=== PATIENT | female | born 1990 | race African-American/Black ===

== ENCOUNTER 2024-12-15 16:37 | Inpatient (IN) | payer OTHER ==
[2024-12-15 16:59] VITALS: BMI 29.9
[2024-12-15] MEDS ORDERED: guaiFENesin 600 MG TABLET.ER (FP) PO PRN (17:45)
[2024-12-15] MEDS ORDERED: DICYCLOMINE HCL 10 MG CAPSULE PO PRN (17:45)
[2024-12-15] MEDS ORDERED: IBUPROFEN 400 MG TABLET (FP) PO PRN (17:45)
[2024-12-15] MEDS ORDERED: NICOTINE POLACRILEX 2 MG GUM BUC PRN (17:45)
[2024-12-15] MEDS ORDERED: MAGNESIUM HYDROX 2400MG/30ML ORAL SUSPENSION 30 ML CUP PO PRN (17:45)
[2024-12-15] MEDS ORDERED: ACETAMINOPHEN 325 MG TABLET (FP) PO PRN (17:45)
[2024-12-15] MEDS ORDERED: METHOCARBAMOL 500 MG TABLET PO PRN (17:45)
[2024-12-15] MEDS ORDERED: IBUPROFEN 600 MG TABLET (FP) PO PRN (17:45)
[2024-12-15] MEDS ORDERED: LOPERAMIDE HCL 2 MG CAPSULE PO PRN (17:45)
[2024-12-15] MEDS ORDERED: NALOXONE (NARCAN) HCL 4 MG/0.1 ML SPRAY NS PRN (17:45)
[2024-12-15] MEDS ORDERED: BISMUTH SUBSALICYLATE 524 MG/30 ML PO PRN (17:45)
[2024-12-15] MEDS ORDERED: ONDANSETRON *ODT* 4 MG TABLET SL PRN (17:45)
[2024-12-15] MEDS ORDERED: BENZONATATE 200 MG CAPSULE PO PRN (17:45)
[2024-12-15] MEDS ORDERED: BENZOCAINE/MENTHOL (CHLORASEPTIC ) LOZENGE MM PRN (17:45)
[2024-12-15] MEDS ORDERED: POLYETHYLENE GLYCOL (HEALTHYLAX) 3350 17 GM PACKET PO PRN (17:45)
[2024-12-15] MEDS ORDERED: MAG HYDROX/AL HYDROX/SIMETH 30 ML UNIT-DOSE CUP PO PRN (17:45)
[2024-12-15] MEDS: hydrOXYzine PAMOATE 25 MG CAPSULE (FP) PO PRN (18:16)
[2024-12-15] MEDS ORDERED: hydrOXYzine PAMOATE 25 MG CAPSULE (FP) PO ONE (18:17)
[2024-12-15] MEDS ORDERED: ALBUTEROL SO4 HFA INHALER IH PRN (18:34)
[2024-12-15] MEDS: THIAMINE 100 MG TABLET PO SCH (23:31)
[2024-12-15] MEDS: MELATONIN 5 MG TABLETS PO SCH (23:31)
[2024-12-16 09:33] VITALS: BP 113/86; PULSE 98; RESP 16; TEMP 97.1
[2024-12-16] MEDS: DULoxetine HCL 60 MG CAPSULE.DR PO SCH (10:34)
[2024-12-16] MEDS: PRENATAL VITAMINS W/ FOLIC ACID TABLET (FP) PO SCH (10:35)
[2024-12-16 11:14] LABS: HEMATOCRIT 37.2 % (34.1-44.9); HEMOGLOBIN 11.9 g/dL (11.2-15.7); MEAN CELL VOLUME 92.3 fl (79.4-94.8); MEAN PLT VOLUME 10.6 fl (9.4-12.3); PLATELET COUNT 227 x10^3/uL (182-369); RDW 15.3 % (12.1-16.8)
[2024-12-16 11:19] LABS: CHLORIDE 105 mmol/L (98-107); POTASSIUM 4.1 mmol/L (3.5-5.1); SODIUM 139 mmol/L (136-145)
[2024-12-16 11:30] LABS: ANION GAP 6 mmol/L (4-13); BLOOD UREA NITROGEN 7.9 mg/dL (7-18); CO2 28 mmol/L (21-32); GLUCOSE,RANDOM 77 mg/dL (74-106)
[2024-12-16 11:34] LABS: CREATININE 0.6 mg/dL (0.55-1.3); SGOT/AST 66 U/L (15-37); SGPT/ALT 59 U/L (13-61)
[2024-12-16 11:36] LABS: BILIRUBIN,TOTAL 0.8 mg/dL (0.2-1); TOT PROT 5.7 g/dl (6.4-8.2)
[2024-12-16 11:37] LABS: ALK PHOS 100 U/L (45-117)
[2024-12-16] MEDS ORDERED: traZODone HCL 100 MG TABLET (FP) PO SCH (22:00)
== END 2024-12-16 10:39 | disposition home or self-care (01) | DRG 775 ==
LOC: YASAS 16:37 → Y6N 18:05
PROVIDERS: ADMIT Allergy & Immunology; ATTEND Allergy & Immunology
PROC: HZ2ZZZZ Detoxification Services for Substance Abuse Treatment (ICD-10-PCS; principal; 2024-12-15)
DX: F10.20 Alcohol dependence, uncomplicated (principal); F12.20 Cannabis dependence, uncomplicated; F17.210 Nicotine dependence, cigarettes, uncomplicated; F19.282 Other psychoactive substance dependence with psychoactive substance-induced sleep disorder; F19.24 Other psychoactive substance dependence with psychoactive substance-induced mood disorder; F41.9 Anxiety disorder, unspecified; F32.A Depression, unspecified; J45.909 Unspecified asthma, uncomplicated; Z59.02 Unsheltered homelessness
CPT/HCPCS: 36415; 80053; 80305; 80307; 81025; 85027; 86780; 93005; 93010